=== PATIENT | female | born 1990 | race Caucasian/White ===

== ENCOUNTER 2018-10-17 08:19 | Emergency (ER) | payer SELFPAY ==
[~2018-10-17] VITALS: Ht 152.4 cm; Wt 49.9 kg
[2018-10-17] MEDS ORDERED: RISPERDAL0.5 MG ORAL (08:33)
[2018-10-17] MEDS ORDERED: MIRTAZAPINE15 M3 ORAL (08:33)
[2018-10-17 09:14] VITALS: BP 104/74
[2018-10-17] MEDS ORDERED: ALPRAZolam 0.25mg tab ORAL ONE (09:15)
[2018-10-17 09:22] VITALS: BP 104/74
--- NOTE | 2018-10-17 09:31 | Emergency Room Report ---
History of Present Illness General Chief Complaint: General Complaint Source: Patient Present Illness HPI Patient presents with reports that she was feeling tired Reports that she had been walking and increased amount than usual Also reports that she felt anxious and has a history of ADHD Denies any headache denies any chest pain Patient had a palpitation sensation with her reports of anxiousness Patient reports being on medication including risperidone Reports recently disposition from psychiatric facility however reports that she has no intentions of returning to a facility like that Denies any homicidal or suicidal thoughts Allergies: Coded Allergies: No Known Allergies (Unverified , 10/17/18) Patient History Past Medical History: see triage record Pertinent Family History: none Now: No Reviewed Nursing Documentation: PMH: Agreed; PSxH: Agreed Nursing Documentation-PMH Past Medical History: No History, Except For History Of Psychiatric Problem: Yes - ADHD, anxiety Review of Systems All Other Systems: negative except mentioned in HPI Physical Exam Vital Signs Date Time Temp Pulse Resp B/P (MAP) Pulse Ox O2 Delivery O2 Flow Rate FiO2 10/17/18 08:23 98.1 108 19 102/71 99 Room Air Sp02 EP Interpretation: reviewed, normal General Appearance: well appearing, no apparent distress Head: normocephalic, atraumatic Eyes: bilateral eye PERRL, bilateral eye EOMI ENT: hearing grossly normal, normal pharynx, TMs + canals normal, uvula midline Neck: full range of motion, supple, no meningismus, no bony tend Respiratory: lungs clear, normal breath sounds, no rhonchi, no respiratory distress, no retraction, no accessory muscle use Cardiovascular #1: normal peripheral pulses, regular rate, rhythm, no edema, no gallop, no JVD, no murmur Gastrointestinal: normal bowel sounds, non tender, soft, no mass, no organomegaly, non-distended, no guarding, no hernia, no pulsatile mass, no rebound Genitourinary: no CVA tenderness Musculoskeletal: normal inspection Neurologic: oriented x3, responsive, 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 as tested, motor strength/ tone normal, sensory intact Psychiatric: mood/affect normal - With self-reported anxiousness Skin: normal color, no rash, warm/dry, palpation normal Lymphatic: normal inspection, no adenopathy Medical Decision Making Diagnostic Impression: Primary Impression: palpitations ER Course Patient resting comfortably her speech is appropriate and does not appear pressured Hemodynamically appropriate Psychiatrically denies any homicidal or suicidal thoughts, patient appears well kept And was driven here by a friend Given her reports of her symptoms she was treated symptomatically Referrals are made and provided for the patient Patient showing appropriate decision-making capacity And she requires close outpatient follow-up Last Vital Signs Date Time Temp Pulse Resp B/P (MAP) Pulse Ox O2 Delivery O2 Flow Rate FiO2 10/17/18 09:22 98.1 101 20 104/74 98 Room Air Status: improved Disposition: HOME, SELF-CARE Condition: Improved Referrals: NOT CHOSEN IPA/,REFERRING (PCP) Jo Ann Agarwal Comp. [facility] + [facility] Psych ER - Peds ER - [facility] Patient Instructions: Palpitations, [id number] Additional Instructions: Patient is provided with the discharge instructions notified to follow up with primary doctor in the next 2-3 days otherwise return to the er with any worsening symptoms. Please note that this report is being documented using [employer] technology. This can lead to erroneous entry secondary to incorrect interpretation by the dictating instrument. Honorio Salcido DO Oct 17, 2018 09:31
== END 2018-10-17 09:22 | disposition home or self-care (01) ==
LOC: EMR 08:54
DX: R00.2 Palpitations (principal); F41.9 Anxiety disorder, unspecified; F90.9 Attention-deficit hyperactivity disorder, unspecified type
CPT/HCPCS: 99282